=== PATIENT | female | born 1975 | race Caucasian/White ===

== ENCOUNTER 2017-01-12 18:47 | Emergency (ER) | payer BC ==
[2017-01-12] MEDS ORDERED: CLINDAMYCIN 600 MG/D5W RTU 50 ML IV ONE (19:09)
--- NOTE | 2017-01-12 19:10 | ER Document Report ---
ED Medical Screen (RME) - General Chief Complaint: Facial Swelling Stated Complaint: FACIAL SWELLING/TOOTHACHE TRAVEL OUTSIDE OF THE [place] IN LAST 30 DAYS: No - HPI Notes: 01/12/17 19:09 Facial swelling dental pain ongoing today. Patient has obvious swelling to the right side of her face no difficulty in swallowing difficulty in opening up her mouth. - Related Data Allergies/Adverse Reactions: cephalexin [From Keflex] Adverse Reaction (Verified 01/12/17 18:53) Past Medical History Renal/ Medical History: Denies: Hx Peritoneal Dialysis Review of Systems - Review of Systems Constitutional: Other - Facial swelling Physical Exam - Vital signs Vitals: Temp Pulse Resp BP Pulse Ox 98.8 F 79 20 149/88 H 98 01/12/17 18:51 01/12/17 18:51 01/12/17 18:51 01/12/17 18:51 01/12/17 18:51 - Respiratory Respiratory status: No respiratory distress Chest status: Nontender Breath sounds: Normal Chest palpation: Normal Course - Vital Signs Vital signs: Temp Pulse Resp BP Pulse Ox 98.8 F 79 20 149/88 H 98 01/12/17 18:51 01/12/17 18:51 01/12/17 18:51 01/12/17 18:51 01/12/17 18:51
[2017-01-12] MEDS ORDERED: KETOROLAC TROMETHAMINE INJ/PF 30 MG/1 ML SDV IV ONE (19:17)
[2017-01-12] MEDS ORDERED: METHYLPREDNISOLONE INJ 125 MG/2 ML SDV IV ONE (19:21)
--- NOTE | 2017-01-12 19:21 | ER Document Report ---
ED General Pain - General Chief Complaint: Facial Swelling Stated Complaint: FACIAL SWELLING/TOOTHACHE Time seen by provider: 19:20 Mode of Arrival: Ambulatory Information source: Patient Notes: 41-year-old female with a decayed bicuspid started having increased pain and swelling adjacent to that tooth in the gingiva and mandible during the day. The pain is increased. No fever. She had similar thing happen on the left side in which she had to have 3 teeth pulled. Hx BTL, 1 oophorectomy, anemia. Pt has no one to drive her home. TRAVEL OUTSIDE OF THE [place] IN LAST 30 DAYS: No - Related Data Allergies/Adverse Reactions: cephalexin [From Keflex] Adverse Reaction (Verified 01/12/17 18:53) Past Medical History - General Information source: Patient - Social History Smoking Status: Current Every Day Smoker Frequency of alcohol use: None Drug Abuse: None Lives with: Family Family History: Reviewed & Not Pertinent Patient has suicidal ideation: No Patient has homicidal ideation: No - Medical History Medical History: Negative Renal/ Medical History: Denies: Hx Peritoneal Dialysis Past Surgical History: Reports: Hx Gynecologic Surgery - 1 oophorectomy, Hx Tubal Ligation Review of Systems - Review of Systems Constitutional: No symptoms reported EENT: See HPI Cardiovascular: No symptoms reported Respiratory: No symptoms reported Gastrointestinal: No symptoms reported Genitourinary: No symptoms reported Female Genitourinary: No symptoms reported Musculoskeletal: No symptoms reported Skin: No symptoms reported Hematologic/Lymphatic: No symptoms reported Neurological/Psychological: No symptoms reported Physical Exam - Vital signs Vitals: Temp Pulse Resp BP Pulse Ox 98.8 F 79 20 149/88 H 98 01/12/17 18:51 01/12/17 18:51 01/12/17 18:51 01/12/17 18:51 01/12/17 18:51 Interpretation: Normal - General General appearance: Appears well, Alert - HEENT Head: Normocephalic, Atraumatic Eyes: Normal Conjunctiva: Normal Pupils: PERRL Mouth/Lips: Caries - right lower bicuspid decayed to pulp with firm indurated inflamed tissue adjacent to the tooth, mild tender inner gingiva also, no mass under tongue. Mucous membranes: Other - see above Teeth diagram: 1 - decay Pharynx: Normal Notes: mild trismus - Respiratory Respiratory status: No respiratory distress Chest status: Nontender Breath sounds: Normal Chest palpation: Normal - Cardiovascular Rhythm: Regular Heart sounds: Normal auscultation Murmur: No - Abdominal Inspection: Normal Distension: No distension Bowel sounds: Normal Tenderness: Nontender Organomegaly: No organomegaly - Back Back: Normal, Nontender - Extremities General upper extremity: Normal inspection, Nontender, Normal color, Normal ROM , Normal temperature General lower extremity: Normal inspection, Nontender, Normal color, Normal ROM , Normal temperature, Normal weight bearing. No: Chidi's sign - Neurological Neuro grossly intact: Yes Cognition: Normal Orientation: AAOx4 Joao Coma Scale Eye Opening: Spontaneous Morgan Coma Scale Verbal: Oriented Morgan Coma Scale Motor: Obeys Commands Joao Coma Scale Total: 15 Speech: Normal Motor strength normal: LUE, RUE, LLE, RLE Sensory: Normal - Psychological Associated symptoms: Normal affect, Normal mood - Skin Skin Temperature: Warm Skin Moisture: Dry Skin Color: Normal Skin irregularity: negative: Rash Course - Re-evaluation Re-evalutation: 01/12/17 20:39 CT shows. Dental disease decay and cellulitis but no drainable abscess. 01/12/17 20:43 Patient only takes one iron a day I asked her to increase it to 3 times a day and take a stool softener. She ordinarily runs very low hemoglobin especially when she is on her menses which she has right now. 01/12/17 20:43 - Vital Signs Vital signs: Temp Pulse Resp BP Pulse Ox 98.8 F 79 20 149/88 H 98 01/12/17 18:51 01/12/17 18:51 01/12/17 18:51 01/12/17 18:51 01/12/17 18:51 - Laboratory Result Diagrams: 01/12/17 19:25 01/12/17 19:25 Laboratory results interpreted by me: 01/12/17 19:25 Hgb 8.4 L Hct 26.9 L MCV 66 L MCH 20.7 L MCHC 31.1 L RDW 19.8 H Discharge - Discharge Clinical Impression: Dental decay, gingival cellulitis and inflammation Anemia Qualifiers: Anemia type: unspecified type Qualified Code(s): D64.9 - Anemia, unspecified Condition: Good Disposition: HOME, SELF-CARE Instructions: Dental Infection or Abscess ([facility]), Steroid Medication, Clindamycin ([facility]), Oral Narcotic Medication ([facility]), Anemia, Iron Deficiency ([facility]) Additional Instructions: see the dentist saturday warm compress return to the ER if worse oral rinse antibacterial take over the counter iron three times per day with stool softner daily Please complete the patient satisfaction survey if you get one, and return it.. If you do not receive a survey, then you can go to the [facility] website, [email or web address] and place your comments about your very good care. Thank you very much. It was a pleasure being your medical provider today. Prescriptions: Hydrocodone Bit/Acetaminophen [Hydrocodon-Acetaminophen 5-325] 1 - 2 each PO Q4HP PRN #15 tablet PRN Reason: Chlorhexidine Gluconate [Peridex] 15 ml MM TID #200 mouthwash Clindamycin HCl [Cleocin 150 mg Capsule] 300 mg PO TID #42 capsule Fluconazole [Diflucan] 150 mg PO ONCE PRN #1 tablet PRN Reason: Prednisone [Deltasone 20 mg Tablet] 40 mg PO DAILY #8 tablet
[2017-01-12 19:51] LABS: ABSOLUTE BASOPHILS # (AUTO) 0.1 10^3/uL (0.0-0.2); ABSOLUTE EOSINOPHILS # (AUTO) 0.3 10^3/uL (0.0-0.6); ABSOLUTE MONOCYTES (AUTO) 0.7 10^3/uL (0.1-1.4); ABSOLUTE NEUT (AUTO) 7.3 10^3/uL (1.7-8.2); BASOPHILS % (AUTO) 0.5 % (0-2); EOSINOPHILS % (AUTO) 3.4 % (0-6); HEMATOCRIT 26.9 % (36.0-47.0); HEMOGLOBIN 8.4 g/dL (12.0-15.5); HGB HCT DIFFERENCE -1.7; LYMPHOCYTES % (AUTO) 19.3 % (13-45); MEAN CORPUSCULAR HEMOGLOBIN 20.7 pg (27.0-33.4); MEAN CORPUSCULAR HGB CONC 31.1 g/dL (32.0-36.0); MEAN CORPUSCULAR VOLUME 66 fl (80-97); MONOCYTES % (AUTO) 6.9 % (3-13); RED BLOOD COUNT 4.05 10^6/uL (3.72-5.28); RED CELL DISTRIBUTION WIDTH 19.8 % (11.5-14.0); SEGMENTED NEUTROPHILS % (AUTO) 69.9 % (42-78); WHITE BLOOD COUNT 10.4 10^3/uL (4.0-10.5)
[2017-01-12 20:01] LABS: ANION GAP 13 (5-19); BLOOD UREA NITROGEN 7 mg/dL (7-20); CARBON DIOXIDE 23 mmol/L (22-30); CHLORIDE 107 mmol/L (98-107); CREATININE RESULT 0.65 mg/dL (0.52-1.25); GLUCOSE 100 mg/dL (75-110); POTASSIUM 3.8 mmol/L (3.6-5.0); SODIUM 143.2 mmol/L (137-145)
[2017-01-12 21:02] VITALS: BP 147/79
== END 2017-01-12 21:01 | disposition home or self-care (01) ==
LOC: ER 18:47
DX: K02.9 Dental caries, unspecified (principal); K12.2 Cellulitis and abscess of mouth; D64.9 Anemia, unspecified; R22.0 Localized swelling, mass and lump, head; K08.89 Other specified disorders of teeth and supporting structures; F17.200 Nicotine dependence, unspecified, uncomplicated
CPT/HCPCS: 99284; 96375; 96365; 36415; 87040; 85025; 80048; 70487; J2930; J1885